=== PATIENT | male | born 1955 | race Caucasian/White ===

== ENCOUNTER 2018-04-13 19:48 | Inpatient (IN) | payer MEDICAID, OTHER ==
[~2018-04-13] VITALS: Ht 165.1 cm; Wt 62.6 kg
[2018-04-14] MEDS ORDERED: SODIUM CHLORIDE 0.9% 1,000 ML IV ONE (01:28)
[2018-04-14] MEDS ORDERED: PANTOPRAZOLE SODIUM 40 MG/VIAL IV STA (01:28)
[2018-04-14] MEDS ORDERED: ONDANSETRON HCL 4MG/2ML INJ IV STA (01:28)
[2018-04-14 01:51] LABS: CHLORIDE 104 mEq/L (98-107); HEMATOCRIT. 22.9 % (42.0-52.0); MEAN CORPUSCULAR HEMOGLOBIN 21.5 pg (28.0-32.0); MEAN CORPUSCULAR VOLUME 70.4 fL (80.0-94.0); MEAN PLATELET VOLUME 9.4 fl (7.4-10.4); RED BLOOD CELL COUNT 3.25 mill/uL (4.7-6.1); RED CELL DISTRIBUTION WIDTH 21.9 % (11.6-14.6)
[2018-04-14 01:56] LABS: INR 1.3; PROTHROMBIN TIME 12.7 sec (9.1-11.1)
[2018-04-14 02:07] LABS: PLATELET 45 x1000/uL (130-400)
[2018-04-14 04:01] LABS: CLARITY URINE CLEAR (CLEAR); COLOR URINE YELLOW (YELLOW); KETONES URINE NEGATIVE (NEGATIVE); LEUKOCYTE ESTERASE URINE NEGATIVE (NEGATIVE); NITRITE URINE NEGATIVE (NEGATIVE); OCCULT BLOOD URINE NEGATIVE (NEGATIVE); PH URINE 7.5 (4.5-8.0); PROTEIN URINE NEGATIVE (NEGATIVE); SPECIFIC GRAVITY URINE 1.007 (1.005-1.030)
[2018-04-14 05:17] LABS: PLATELET ESTIMATE DECREASED
[2018-04-14] MEDS ORDERED: ACETAMINOPHEN 650MG SUPP PR PRN (07:00)
[2018-04-14] MEDS ORDERED: PANTOPRAZOLE 80 MG in SODIUM CHLORIDE 0.9% 100 ML IV SCH (07:00)
[2018-04-14] MEDS: PANTOPRAZOLE 80 MG in SODIUM CHLORIDE 0.9% 100 ML IV SCH ×2 (09:55→19:30)
[2018-04-14] MEDS: DEXT 5%/0.45% NACL 1000ML 1,000 ML IV SCH ×2 (12:49→23:45)
[2018-04-14] MEDS ORDERED: PANTOPRAZOLE SODIUM 40 MG/VIAL IV SCH (14:30)
[2018-04-14 19:39] LABS: HEMOGLOBIN 7.3 g/dL (14.0-18.0)
[2018-04-14 19:50] LABS: TOTAL IRON BINDING CAPACITY 407 ug/dL (250-450)
[2018-04-14 20:50] VITALS: BP 135/79
[2018-04-14 22:00] VITALS: BP 129/79
[2018-04-14] MEDS: PANTOPRAZOLE SODIUM 40 MG/VIAL IV SCH (22:10)
[2018-04-15] VITALS (9 sets, daily range): BP systolic 113–193; BP diastolic 58–140
[2018-04-15 01:04] LABS: HEMATOCRIT 23.4 % (42.0-52.0); HEMOGLOBIN 7.4 g/dL (14.0-18.0)
[2018-04-15] MEDS: PANTOPRAZOLE SODIUM 40 MG/VIAL IV SCH ×2 (09:22→21:22)
[2018-04-15 09:24] LABS: HEMATOCRIT. 23.7 % (42.0-52.0); HEMOGLOBIN. 7.6 g/dL (14.0-18.0); MEAN CORPUSCULAR VOLUME 72.2 fL (80.0-94.0); MEAN PLATELET VOLUME 8.9 fl (7.4-10.4); RED BLOOD CELL COUNT 3.28 mill/uL (4.7-6.1); RED CELL DISTRIBUTION WIDTH 23.4 % (11.6-14.6)
[2018-04-15 09:39] LABS: PLATELET 42 x1000/uL (130-400)
[2018-04-15 09:47] LABS: CHLORIDE 108 mEq/L (98-107)
[2018-04-15] MEDS ORDERED: POTASSIUM CHLORIDE INJ 40 MEQ in DEXT 5% WATER 250 ML IV SCH (10:00)
[2018-04-15] MEDS: DEXT 5%/0.45% NACL 1000ML 1,000 ML IV SCH (12:40)
[2018-04-15] MEDS ORDERED: FENTANYL CITRATE/PF 50MCG/ML 2ML VIAL ONE (13:15)
[2018-04-15] MEDS ORDERED: MIDAZOLAM HCL 2 MG/2 ML VIAL ONE (13:16)
[2018-04-15] MEDS ORDERED: LIDOCAINE HCL/PF 1% 10 MG/ML 5ML VIAL ONE (13:19)
[2018-04-15] MEDS ORDERED: PROPOFOL 200MG/20ML VIAL IV ONE (13:19)
[2018-04-15] MEDS ORDERED: DIPHENHYDRAMINE 50MG/ML VIAL ONE (13:19)
[2018-04-15] MEDS ORDERED: SIMETHICONE 40 MG/0.6 ML 30ML ONE (13:22)
[2018-04-15 14:54] LABS: HEMATOCRIT 22.8 % (42.0-52.0); HEMOGLOBIN 7.2 g/dL (14.0-18.0)
[2018-04-15] MEDS ORDERED: THIAMINE HCL 100 MG in SODIUM CHLORIDE 0.9% 100 ML IV SCH (15:00)
[2018-04-15 15:06] LABS: PHOSPHORUS 3.6 mg/dL (2.5-4.9)
[2018-04-15] MEDS: [UNRECOGNIZED DRUG - REMARK] IV SCH ×4 (15:09)
[2018-04-15] MEDS ORDERED: LORAZEPAM 2MG/ML CPJ IV PRN ×2 (15:15→16:45)
[2018-04-15 15:22] LABS: FOLIC ACID (FOLATE) SERUM >20 ng/mL ng/mL (>5.38)
[2018-04-15] MEDS: LORAZEPAM 2MG/ML CPJ IV PRN ×6 (15:22→23:55)
[2018-04-15 15:33] LABS: VITAMIN B12 SERUM >2000 pg/mL pg/mL (211-911)
[2018-04-15] MEDS ORDERED: HALOPERIDOL LACTATE 5MG/ML VIAL IM PRN (16:45)
[2018-04-15] MEDS: SUCRALFATE 1G TABLET PO SCH ×2 (16:58→21:00)
[2018-04-15] MEDS ORDERED: HALOPERIDOL LACTATE 5MG/ML VIAL IM NR (20:00)
[2018-04-15] MEDS: PHYTONADIONE 10MG/ML AMP IM SCH (20:06)
[2018-04-15] MEDS ORDERED: MAGNESIUM 2 G PREMIX 50 ML IV NR (20:30)
[2018-04-15 20:37] LABS: HEMATOCRIT 25.2 % (42.0-52.0); HEMOGLOBIN 7.9 g/dL (14.0-18.0)
[2018-04-15] MEDS ORDERED: PHYTONADIONE 10MG/ML AMP IM ONE (21:00)
[2018-04-16] VITALS (19 sets, daily range): BP systolic 101–173; BP diastolic 28–109
[2018-04-16] MEDS: DEXT 5%/0.9% NACL 1,000 ML IV SCH (02:20)
[2018-04-16] MEDS ORDERED: HALOPERIDOL LACTATE 5MG/ML VIAL IM NR (03:30)
[2018-04-16] MEDS: LORAZEPAM 2MG/ML CPJ IV PRN ×2 (03:45→06:12)
[2018-04-16 06:20] LABS: PLATELET ESTIMATE MARKEDLY DECREASED
[2018-04-16] MEDS ORDERED: HALOPERIDOL LACTATE 5MG/ML VIAL IM SCH (06:45)
[2018-04-16] MEDS ORDERED: LORAZEPAM 2MG/ML CPJ IV PRN (06:45)
[2018-04-16] MEDS: SUCRALFATE 1G TABLET PO SCH ×4 (07:30→21:32)
[2018-04-16 09:25] LABS: INR 1.2; PROTHROMBIN TIME 12.1 sec (9.1-11.1)
[2018-04-16 09:46] LABS: CHLORIDE 112 mEq/L (98-107)
[2018-04-16] MEDS: PHYTONADIONE 10MG/ML AMP IM SCH (09:50)
[2018-04-16] MEDS: PANTOPRAZOLE SODIUM 40 MG/VIAL IV SCH ×2 (09:50→21:31)
[2018-04-16 09:51] LABS: PHOSPHORUS 2.5 mg/dL (2.5-4.9)
[2018-04-16] MEDS: HALOPERIDOL LACTATE 5MG/ML VIAL IM PRN ×3 (09:51→21:32)
[2018-04-16 09:55] LABS: HEMATOCRIT. 29.1 % (42.0-52.0); HEMOGLOBIN. 9.2 g/dL (14.0-18.0); MEAN CORPUSCULAR HEMOGLOBIN 23.7 pg (28.0-32.0); MEAN CORPUSCULAR VOLUME 74.9 fL (80.0-94.0); MEAN PLATELET VOLUME 8.9 fl (7.4-10.4); RED BLOOD CELL COUNT 3.88 mill/uL (4.7-6.1); RED CELL DISTRIBUTION WIDTH 23.7 % (11.6-14.6)
[2018-04-16 10:09] LABS: PLATELET 42 x1000/uL (130-400)
[2018-04-16] MEDS ORDERED: POTASSIUM CHLORIDE INJ 40 MEQ in DEXT 5% WATER 250 ML IV NR (11:30)
[2018-04-16] MEDS: [UNRECOGNIZED DRUG - REMARK] IV SCH ×4 (19:50)
[2018-04-16 23:02] LABS: PLATELET ESTIMATE MARKEDLY DECREASED
[2018-04-17] VITALS (11 sets, daily range): BP systolic 105–135; BP diastolic 63–84
[2018-04-17 06:38] LABS: HEMATOCRIT. 25.7 % (42.0-52.0); HEMOGLOBIN. 8.3 g/dL (14.0-18.0); MEAN CORPUSCULAR HEMOGLOBIN 24.4 pg (28.0-32.0); MEAN CORPUSCULAR VOLUME 75.2 fL (80.0-94.0); MEAN PLATELET VOLUME 8.6 fl (7.4-10.4); PLATELET 85 x1000/uL (130-400); RED BLOOD CELL COUNT 3.42 mill/uL (4.7-6.1); RED CELL DISTRIBUTION WIDTH 23.5 % (11.6-14.6)
[2018-04-17] MEDS: DEXT 5%/0.9% NACL 1,000 ML IV SCH ×3 (08:14→14:31)
[2018-04-17] MEDS: SUCRALFATE 1G TABLET PO SCH ×3 (08:31→17:22)
[2018-04-17] MEDS: PANTOPRAZOLE SODIUM 40 MG/VIAL IV SCH (08:32)
[2018-04-17] MEDS: PHYTONADIONE 10MG/ML AMP IM SCH (08:32)
[2018-04-17 08:47] LABS: CHLORIDE 113 mEq/L (98-107)
[2018-04-17 11:27] LABS: ATYPICAL LYMPHOCYTES 1
[2018-04-17 11:29] LABS: PLATELET ESTIMATE DECREASED
[2018-04-17] MEDS ORDERED: POTASSIUM CHLORIDE INJ 40 MEQ in DEXT 5% WATER 250 ML IV NR (13:00)
[2018-04-17] MEDS ORDERED: [UNRECOGNIZED DRUG - REMARK] IV SCH ×4 (15:00)
== END 2018-04-17 19:30 | disposition home or self-care (01) | DRG 241 ==
LOC: ER 19:48 → 5EST 04-14 02:25 → EDBEDREQ 04-14 02:26 → EDBEDREQTM 04-14 02:26 → EDBEDREQSVC 04-14 02:26 → ENRESERV 04-14 19:42 → 5EST 04-15 05:10
PROVIDERS: ADMIT Hospitalist; ATTEND Hospitalist
PROC: 30233N1 Transfusion of Nonautologous Red Blood Cells into Peripheral Vein, Percutaneous Approach (ICD-10-PCS; 2018-04-14)
PROC: 0DB68ZX Excision of Stomach, Via Natural or Artificial Opening Endoscopic, Diagnostic (ICD-10-PCS; principal; 2018-04-15)
PROC: 30233R1 Transfusion of Nonautologous Platelets into Peripheral Vein, Percutaneous Approach (ICD-10-PCS; 2018-04-16)
DX: K29.71 Gastritis, unspecified, with bleeding (principal); I85.11 Secondary esophageal varices with bleeding; D69.6 Thrombocytopenia, unspecified; E44.1 Mild protein-calorie malnutrition; K74.60 Unspecified cirrhosis of liver; D50.0 Iron deficiency anemia secondary to blood loss (chronic); E11.9 Type 2 diabetes mellitus without complications; F10.239 Alcohol dependence with withdrawal, unspecified; I10 Essential (primary) hypertension; Z86.19 Personal history of other infectious and parasitic diseases; Z68.23 Body mass index [BMI] 23.0-23.9, adult; K31.7 Polyp of stomach and duodenum
CPT/HCPCS: 36415; 71045; 76700; 82140; 82607; 82728; 82746; 82962; 83540; 83550; 83605; 83735; 84100; 84132; 85014; 85018; 86850; 86900; 86920; 86945; 88305; 88312; 88313; 93005; 96361; 96374; 96375; 99284; 99291; C9113; J1200; J1630; J2060; J2250; J2405; J2704; J3010; J3411; J3430; J3475; J3480; J3490; J7030; J7040; J7042; J7050; J7060; P9016; P9034